=== PATIENT | male | born 1970 | race Caucasian/White ===

== ENCOUNTER 2016-06-01 06:02 | Emergency (ER) | payer BC, OTHER ==
[~2016-06-01] VITALS: Ht 188 cm; Wt 95.3 kg
[2016-06-01 06:53] LABS: BASO % 0.2 % (0.0-1.0); EOS % 0.4 % (0.0-3.0); LARGE UNSTAINED CELL # 0.2 K/mm3 (0.0-0.4); LARGE UNSTAINED CELL % 1.7 % (0.0-4.0); LYMPH # 0.9 K/mm3 (1.5-4.5); LYMPH % 7.9 % (24.0-44.0); MEAN CORPUSCULAR HEMOGLOBIN 31.3 pg (27.0-33.0); MEAN CORPUSCULAR HGB CONC 33.7 g/dl (32.0-36.5); MEAN CORPUSCULAR VOLUME 92.8 fl (80.0-96.0); MONO # 0.7 K/mm3 (0.0-0.8); MONO % 6.1 % (0.0-5.0); NEUTROPHILS # 9.7 K/mm3 (1.8-7.7); NEUTROPHILS % 83.6 % (36.0-66.0); PLATELET COUNT, AUTOMATED 167 k/mm3 (150-450); RED CELL DISTRIBUTION WIDTH 11.9 % (11.5-14.5); WHITE BLOOD COUNT 11.5 K/mm3 (4.0-10.0)
[2016-06-01] MEDS: ACETAMINOPHEN 325 MG TAB PO ONE (07:00)
[2016-06-01 07:01] LABS: ANION GAP 13 MEQ/L (8-16); BLOOD UREA NITROGEN 12 MG/DL (7-18); CALCIUM LEVEL 8.5 MG/DL (8.5-10.1); CARBON DIOXIDE LEVEL 22 MEQ/L (21-32); CHLORIDE LEVEL 104 MEQ/L (98-107); CREATININE FOR GFR 1.31 MG/DL (0.70-1.30); GLOMERULAR FILTRATION RATE > 60.0 (>60); GLUCOSE, FASTING 161 MG/DL (70-105); SODIUM LEVEL 139 MEQ/L (136-145)
[2016-06-01] MEDS: dexameTHASONE 20 MG/5 ML VIAL (J1100) IV ONE (07:01)
[2016-06-01] MEDS: NS 1,000 ML IV ONE ×2 (07:01→08:10)
[2016-06-01] MEDS: IPRATROPIUM 0.5MG/ALBUTEROL 2.5MG INH SOL UD 3ML (DUONEB)(J7620) NEB ONE (07:02)
[2016-06-01] MEDS: IBUPROFEN 800 MG TAB PO ONE (07:22)
--- NOTE | 2016-06-01 07:30 | REPUSA ---
CLINICAL HISTORY: Syncope. TECHNIQUE: Multiple axial brain CT scan sections were obtained from base to vertex without contrast a dministration. COMMENTS: Air-fluid level in the left maxillary sinus. Chronic mucosal inflammatory changes in the ethmoid air cells. The study shows normal configuration of sella turcica. There are no intra or extra-axial collections. There is no mass effect or midline shift. There is no evidence of hematoma formation. No hydrocephal us is present. No abnormal calcifications are noted. No significant abnormalities are seen either in the posterior fossa or supratentorial compartment. The sinuses and mastoid air cells are patent. IMPRESSION: No evidence of acute intracranial pathology. Chronic mucosal inflammatory changes in the ethmoid air cells. Air-fluid level in the left maxillary sinus. Thank you for your kind referral of this patient.
--- NOTE | 2016-06-01 08:32 | ECGEPIP ---
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
--- NOTE | 2016-06-01 08:32 | REP ---
Clinical: Acute cough . Comparison: None . Technique: PA and lateral. Findings: The mediastinum and cardiac silhouette are normal. The lung macias are clear and without acute consolidation, effusion, or pneumothorax. The skeletal structures are intact and normal. Impression: 1. No acute cardiopulmonary process. Signed by Flaco Mitchell MD 06/01/2016 08:23 A
[2016-06-01 09:36] VITALS: O2SAT 98
[2016-06-01] MEDS ORDERED: ALBU17IN INH (09:48)
[2016-06-01 10:02] VITALS: BP 124/66
== END 2016-06-01 10:04 | disposition home or self-care (01) ==
LOC: M ED 07:20
DX: J20.9 Acute bronchitis, unspecified (principal)
CPT/HCPCS: 36415; 70450; 71020; 80048; 83605; 85025; 87040; 87804; 93005; 94640; 96361; 96374; 99284; J1100

== ENCOUNTER 2016-07-14 10:39 | Emergency (ER) | payer OTHER ==
[~2016-07-14] VITALS: Ht 188 cm; Wt 96.2 kg
[~2016-07-14 10:39] MED LIST: ALBU17IN INH
[2016-07-14 10:40] VITALS: BP 153/91
[2016-07-14] MEDS ORDERED: ADACEL/BOOSTRIX VACCINE (DIPHTH/PERTUSS/ACELL/TETANUS)0.5ML SYR (90715) IM ONE (13:30)
[2016-07-14] MEDS ORDERED: DERMABOND TOPICAL SKIN ADHESIVE TOP ONE (13:30)
== END 2016-07-14 13:58 | disposition home or self-care (01) ==
LOC: M ED 13:49
DX: S01.21XA Laceration without foreign body of nose, initial encounter (principal); W22.09XA Striking against other stationary object, initial encounter; Y92.89 Other specified places as the place of occurrence of the external cause; Y93.01 Activity, walking, marching and hiking; Y99.8 Other external cause status; J45.909 Unspecified asthma, uncomplicated

== ENCOUNTER → 2017-05-24 | Outpatient (REF) | payer OTHER ==
[2017-05-24 14:44] LABS: VITAMIN B12 LEVEL 368 PG/ML
[2017-05-24 14:45] LABS: FERRITIN 108 NG/ML (26-388)
== END ==
LOC: M LAB REF 13:27
DX: D64.9 Anemia, unspecified (principal)
CPT/HCPCS: 82746

== ENCOUNTER → 2019-04-12 | Outpatient (REF) | payer OTHER | LOC: M LAB REF 14:40 | PROVIDERS: ATTEND Dermatology | DX: C44.311 Basal cell carcinoma of skin of nose (principal) ==

== ENCOUNTER → 2019-06-27 | Outpatient (REF) | payer OTHER | LOC: M LAB REF 09:29 | PROVIDERS: ATTEND Dermatology | DX: C44.311 Basal cell carcinoma of skin of nose (principal) ==

== ENCOUNTER 2019-08-04 13:48 | Emergency (ER) | payer OTHER ==
[~2019-08-04] VITALS: Ht 188 cm; Wt 100.0 kg
[2019-08-04] MEDS ORDERED: NS 1,000 ML IV ONE (14:15)
[2019-08-04] MEDS ORDERED: ONDANSETRON 4MG/2ML VIAL IV ONE (14:15)
[2019-08-04] MEDS ORDERED: ISOVUE-370 76% 100ML VIAL As Ordered ONE (14:19)
[2019-08-04 14:34] LABS: BASO % 0.2 % (0.0-1.0); HEMATOCRIT 43.7 % (42.0-52.0); HEMOGLOBIN 15.1 g/dl (13.5-17.5); MEAN CORPUSCULAR HEMOGLOBIN 31.8 pg (27.0-33.0); MEAN CORPUSCULAR HGB CONC 34.6 g/dl (32.0-36.5); MONO # 0.7 10^3/uL (0.0-0.8); MONO % 5.4 % (0.0-5.0); NEUTROPHILS # 10.8 10^3/uL (1.5-8.5); NEUTROPHILS % 86.1 % (36.0-66.0); PLATELET COUNT, AUTOMATED 231 10^3/uL (150-450); RED BLOOD COUNT 4.75 10^6/uL (4.30-6.10); WHITE BLOOD COUNT 12.6 10^3/uL (4.0-10.0)
[2019-08-04 14:46] LABS: INR 1.17; PROTHROMBIN TIME 14.6 SECONDS (11.8-14.0)
--- NOTE | 2019-08-04 15:11 | REP ---
Clinical: Abdominal pain with nausea vomiting and diarrhea. Technique: Axial contrast enhanced images from the lung bases to the pubic symphysis using 100 ml Isovue 370 intravenous contrast material with coronal and sagittal re-formations. Comparison: None. Findings: Lung bases are clear. Visualized heart and pericardium normal. Liver, spleen, pancreas, gallbladder, bilateral adrenal glands and kidneys are essentially normal. Incidental 1 cm right renal hypodensities suggests cyst. No acute perinephric stranding or hydronephrosis. Evaluation of the enteric system is without obstruction or definite acute inflammatory process. Normal terminal ileum and appendix are identified in the right lower quadrant. A very mild colitis cannot be excluded. Evaluation of the pelvis demonstrates normal bladder and age appropriate prostate/seminal vesicles. No ascites. No free air. No adenopathy. Abdominal aorta and vasculature without aneurysm or dissection. Musculoskeletal structures demonstrate age-related changes without acute osseous abnormality. Impression: 1. No definite acute abdominopelvic pathology appreciated. However, a very mild colitis involving the transverse colon cannot be excluded. 2. No ascites, inflammatory stranding, or adenopathy. Electronically Signed by Flaco Mitchell MD 08/04/2019 03:03 P
[2019-08-04 15:15] LABS: ALBUMIN 4.2 GM/DL (3.2-5.2); ALT/SGPT 34 U/L (12-78); BILIRUBIN,DIRECT 0.2 MG/DL (0.0-0.2); CK-MB VALUE MASS < 1.0 NG/ML (<3.6); CPK CREATINE PHOSPHOKINASE 75 U/L (39-308); LIPASE 148 U/L (73-393); MB/CK RELATIVE INDEX 1.33 (< OR =4); TOTAL PROTEIN 7.5 GM/DL (6.4-8.2); TROPONIN I < 0.02 NG/ML (< 0.10)
[2019-08-04] MEDS ORDERED: ONDA4TAB6 PO (15:48)
[2019-08-04] MEDS ORDERED: CIPR-249 PO (15:48)
[2019-08-04] MEDS ORDERED: FLAG500T PO (15:48)
[2019-08-04 15:51] VITALS: BP 117/65
--- NOTE | 2019-08-04 21:10 | ECGEPIP ---
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
== END 2019-08-04 16:27 | disposition home or self-care (01) ==
LOC: M ED 13:48
DX: K52.9 Noninfective gastroenteritis and colitis, unspecified (principal); Z91.030 Bee allergy status
CPT/HCPCS: 36415; 74177; 80047; 80076; 81001; 82550; 82553; 83690; 84484; 85025; 85610; 85730; 93005; 96361; 96374; 99284; J2405; Q9967

== ENCOUNTER → 2020-04-15 | Outpatient (CLI) | payer SELFPAY ==
[~2020-04-15] MED LIST changes: +CIPR-249 PO; +FLAG500T PO; +ONDA4TAB6 PO
== END ==
LOC: M LABSMTC 09:41
PROVIDERS: ATTEND Pediatrics
DX: Z20.822 Contact with and (suspected) exposure to COVID-19 (principal)

== ENCOUNTER → 2020-04-23 | Outpatient (CLI) | payer SELFPAY | LOC: M LABSMTC 09:49 | PROVIDERS: ATTEND Pediatrics | DX: Z20.822 Contact with and (suspected) exposure to COVID-19 (principal) ==

== ENCOUNTER → 2021-04-06 | Outpatient (REF) | payer OTHER | LOC: M LAB REF 14:40 | PROVIDERS: ATTEND Nurse Practitioner Family | DX: C44.41 Basal cell carcinoma of skin of scalp and neck (principal); C44.612 Basal cell carcinoma of skin of right upper limb, including shoulder ==